=== PATIENT | female | born 1975 | race Caucasian/White ===

== ENCOUNTER 2017-03-03 21:28 | Emergency (ER) | payer MEDICAID ==
[~2017-03-03] VITALS: Ht 179.1 cm; Wt 70.0 kg
[~2017-03-03 21:28] MED LIST: CYCL-36 PO; ENDO5TAB6 PO; XANA1TAB6 PO
[2017-03-03 21:29] VITALS: BP 169/102; PULSE 96; RESP 18; TEMP 98.2; O2SAT 100
--- NOTE | 2017-03-03 22:45 | PD ---
HPI Chief Complaint: Chest Pain Time Seen by Provider: 22:44 Travel History International Travel<30 days: No Contact w/Intl Traveler<30days: No Traveled to known affect area: No History of Present Illness HPI 41-year-old female came to the emergency room with complaints of chest pain. Patient says this pain has been there for past 4 days. She had gone to [facility] emergency room 3 days ago where as per the patient she was admitted for possible bacterial endocarditis. She was given a dose of antibiotic but was discharged home the next day after echocardiogram. She was never told the result of the echocardiogram. She did not go home on any antibiotics. Patient has history of prosthetic mitral valve and is supposed to be on Coumadin. She says she takes her Coumadin like she supposed to. Her INR 3 days ago at [place] was 3.1. She had the valve replacement surgery done about a year or 2 ago at [facility]. Vital signs were stable. Patient says the pain is on the left side of her chest radiating to the back. [facility] Past Medical History Narrative Medical List of her past medical, surgical, social and family history is reviewed from the nursing note ?: Unknown LMP: 02/28/10 : 9 Para: 1 Miscarriage: 8 Dilation and Curettage (D&C): Yes Past Surgical History Abdominal Surgery: Yes Gynecologic Surgery: Yes (LAPROSCOPY) Tonsillectomy: Yes Other Surgery: Yes (laparoscopy) Social History Alcohol Use: Yes (ONCE A MONTH) Tobacco Use: Yes (1/2 PPD) Substance Use: No Allergies-Medications (Allergen,Severity, Reaction): Coded Allergies: Morphine (Verified Allergy, Intermediate, 03/03/17) rash Aspirin (Verified Allergy, Mild, 03/03/17) Penicillin (Verified Allergy, Mild, 03/03/17) Stadol (Verified Allergy, Mild, 03/03/17) Amoxicillin (Verified Allergy, Unknown, 03/03/17) Bentyl (Verified Allergy, Unknown, 03/03/17) closing throat up Comments List of her allergies reviewed from the nursing note. Reported Meds & Prescriptions Reported Meds & Active Scripts Active Reported Endocet (Oxycodone/Acetaminophen) 5 Mg/325 Mg Tab 1 Tab PO QID Xanax (Alprazolam) 1 Mg Tab 1 Mg PO QID Flexeril (Cyclobenzaprine HCl) 10 Mg Tab 10 Mg PO TID Narrative Medication List of her home medications reviewed from the nursing note. Review of Systems Except as stated in HPI: all other systems reviewed are Neg Physical Exam Narrative GENERAL: Awake, alert, anxious, moderate distress SKIN: Focused skin assessment warm/dry. HEAD: Atraumatic. Normocephalic. EYES: Pupils equal and round. No scleral icterus. No injection or drainage. ENT: No nasal bleeding or discharge. Mucous membranes pink and moist. NECK: Trachea midline. No JVD. CARDIOVASCULAR: Regular rate and rhythm. No murmur appreciated. RESPIRATORY: No accessory muscle use. Clear to auscultation. Breath sounds equal bilaterally. GASTROINTESTINAL: Abdomen soft, non-tender, nondistended. Hepatic and splenic margins not palpable. MUSCULOSKELETAL: No obvious deformities. No clubbing. No cyanosis. No edema. NEUROLOGICAL: Awake and alert. No obvious cranial nerve deficits. Motor grossly within normal limits. Normal speech. PSYCHIATRIC: Appropriate mood and affect; insight and judgment normal. Data Data Last Documented VS Vital Signs Date Time Temp Pulse Resp B/P Pulse Ox O2 Delivery O2 Flow Rate FiO2 03/04/17 00:48 98.1 76 18 168/87 100 Room Air Orders Electrocardiogram (03/03/17 23:02) Basic Metabolic Panel (Bmp) (03/03/17 23:02) Ckmb (Isoenzyme) Profile (03/03/17 23:02) Complete Blood Count With Diff (03/03/17 23:02) Magnesium (Mg) (03/03/17 23:02) Prothrombin Time / Inr (Pt) (03/03/17 23:02) Act Partial Throm Time (Ptt) (03/03/17 23:02) Troponin I (03/03/17 23:02) Chest, Single Ap (03/03/17 23:02) Ecg Monitoring (03/03/17 23:02) Bilateral Bp Monitoring (03/03/17 23:02) Iv Access Insert/Monitor (03/03/17 23:) Oximetry (03/03/17 23:02) Oxygen Administration (03/03/17 23:02) Sodium Chloride 0.9% Flush (Ns Flush) (03/03/17 23:15) Ketorolac Inj (Toradol Inj) (03/03/17 23:15) Labs Laboratory Tests Test 03/03/17 23:10 White Blood Count 13.1 TH/MM3 Red Blood Count 4.33 MIL/MM3 Hemoglobin 12.7 GM/DL Hematocrit 37.6 % Mean Corpuscular Volume 86.7 FL Mean Corpuscular Hemoglobin 29.2 PG Mean Corpuscular Hemoglobin 33.7 % Concent Red Cell Distribution Width 15.2 % Platelet Count 355 TH/MM3 Mean Platelet Volume 9.1 FL Neutrophils (%) (Auto) 84.4 % Lymphocytes (%) (Auto) 8.5 % Monocytes (%) (Auto) 6.8 % Eosinophils (%) (Auto) 0.1 % Basophils (%) (Auto) 0.2 % Neutrophils # (Auto) 11.0 TH/MM3 Lymphocytes # (Auto) 1.1 TH/MM3 Monocytes # (Auto) 0.9 TH/MM3 Eosinophils # (Auto) 0.0 TH/MM3 Basophils # (Auto) 0.0 TH/MM3 CBC Comment DIFF FINAL Differential Comment Prothrombin Time 21.9 SEC Prothromb Time International 1.9 RATIO Ratio Activated Partial 42.2 SEC Thromboplast Time Sodium Level 139 MEQ/L Potassium Level 4.0 MEQ/L Chloride Level 106 MEQ/L Carbon Dioxide Level 23.0 MEQ/L Anion Gap 10 MEQ/L Blood Urea Nitrogen 8 MG/DL Creatinine 0.95 MG/DL Estimat Glomerular Filtration 65 ML/MIN Rate Random Glucose 83 MG/DL Calcium Level 8.8 MG/DL Magnesium Level 1.8 MG/DL Total Creatine Kinase 19 U/L Troponin I LESS THAN 0.02 NG/ML MDM Medical Decision Making Medical Screen Exam Complete: Yes Emergency Medical Condition: Yes Medical Record Reviewed: Yes Interpretation(s) Twelve-lead EKG was reviewed by me. Normal sinus rhythm, normal axis, nonspecific ST-T wave changes. Heart rate of 79 bpm. Differential Diagnosis ACS, nonspecific chest pain, pneumonia, pleurisy Narrative Course 12:01 AM blood test results of back and within normal limit except for her INR which is subtherapeutic. Meanwhile fax from [facility] in [place] came through. She indeed went there on the 02/28/2017. However everything and she told me was a lie. They never had the differential diagnosis of infectious endocarditis. She never received IV antibiotics. She never got an echocardiogram done. There are discharge diagnosis was costochondritis. Also she had told them that she ran out of her warfarin and has not been taking and her INR was 1. She was discharged home on prednisone, Percocet and warfarin prescription. The leukocytosis that she has in her blood test today is probably from taking the prednisone. Her INR is still subtherapeutic which tells me that she has not been taking the warfarin still. I will discharge her home at this point. I'm very suspicious of pain medication /opiate seeking behavior in this patient. Procedures EKG Prior to Arrival: No Diagnosis Primary Impression: Nonspecific chest pain Additional Impression: Noncompliance with medication regimen Referrals: Primary Care Physician Additional Instructions: Taking medications like is supposed to. Including your warfarin. Follow-up with the primary care. Disposition: DISCHARGE HOME Condition: Stable Laci Savage MD Mar 03, 2017 22:44 Laci Savage MD Mar 03, 2017 22:44
[2017-03-03] MEDS ORDERED: KETOROLAC TROMETHAMINE 30 MG/ML (IVP) VIAL IV PUSH ONE (23:15)
[2017-03-03] MEDS ORDERED: SODIUM CHLORIDE 0.9% FLUSH 10 ML FLUSH IVF PRN (23:15)
[2017-03-03 23:21] VITALS: BP 186/92; PULSE 73; RESP 18; O2SAT 73; O2SAT 99
--- NOTE | 2017-03-03 23:22 | RADRPT ---
EXAM DATE/TIME: 03/03/2017 23:02 [facility] COMPARISON: No previous studies available for comparison. INDICATIONS : Chest pain on left side. MEDICAL HISTORY : None. SURGICAL HISTORY : CABG. ENCOUNTER: Initial ACUITY: 2 days PAIN SCORE: 10/10 LOCATION: Bilateral chest FINDINGS: No infiltrate, effusion or pneumothorax. Heart size within normal limits. Patient has had previous me harpal sternotomy and aortic valve replacement. CONCLUSION: No evidence of acute cardiopulmonary disease. Carlos Alberto Cordova MD on March 03, 2017 at 23:20 Board Certified Radiologist. This report was verified electronically.
[2017-03-03 23:39] LABS: BASOPHIL % 0.2 % (0.0-2.0); EOSINOPHIL % 0.1 % (0.0-4.0); HEMATOCRIT 37.6 % (35.0-46.0); HEMO FLAGS DIFF FINAL; LYMPH % 8.5 % (9.0-44.0); LYMPHOCYTE # 1.1 TH/MM3 (1.0-4.8); MEAN CELL VOLUME 86.7 FL (80.0-100.0); MEAN CORPUSCULAR HEMOGLOBIN 29.2 PG (27.0-34.0); MEAN CORPUSCULAR HGB CONC 33.7 % (32.0-36.0); MONO % 6.8 % (0.0-8.0); NEUT % 84.4 % (16.0-70.0); PLATELET COUNT 355 TH/MM3 (150-450); RED BLOOD COUNT 4.33 MIL/MM3 (4.00-5.30); RED CELL DISTRIBUTION WIDTH 15.2 % (11.6-17.2); WHITE BLOOD COUNT 13.1 TH/MM3 (4.0-11.0)
[2017-03-03 23:45] LABS: APTT (PATIENT) 42.2 SEC (24.3-30.1); INTERNATIONAL NORMALIZED RATIO 1.9 RATIO; PROTHROMBIN TIME - PATIENT 21.9 SEC (9.8-11.6)
[2017-03-03 23:52] LABS: ANION GAP 10 MEQ/L (5-15); BLOOD UREA NITROGEN 8 MG/DL (7-18); CHLORIDE 106 MEQ/L (98-107); GLOMERULAR FILTRATION RATE 65 ML/MIN (>89); MAGNESIUM 1.8 MG/DL (1.5-2.5); SODIUM (NA) 139 MEQ/L (136-145)
[2017-03-03 23:59] LABS: CREATINE KINASE 19 U/L (26-192)
[2017-03-04 00:48] VITALS: BP 168/87; PULSE 76; RESP 18; TEMP 98.1; O2SAT 100
--- NOTE | 2017-03-04 10:01 | EKG ---
Date Performed: 03/03/2017 Time Performed: 23:00:53 PTAGE: 41 years EKG: Normal Sinus rhythm Nondiagnostic Q-waves in the inferior leads Compared to the prior tracing, patient is no longer tach ycardic and the previous ST-T wave changes have completely normalized. PREVIOUS TRACING : 06/07/1994 11.19 DOCTOR: Yaakov Weinstein Interpretating Date/Time 03/04/2017 09:56:31
== END 2017-03-04 00:49 | disposition home or self-care (01) ==
LOC: NEPE 21:28
DX: R07.9 Chest pain, unspecified (principal); D72.829 Elevated white blood cell count, unspecified; F17.200 Nicotine dependence, unspecified, uncomplicated; Z79.899 Other long term (current) drug therapy; Z91.14 Patient's other noncompliance with medication regimen; Z79.01 Long term (current) use of anticoagulants; Z95.2 Presence of prosthetic heart valve; Z88.6 Allergy status to analgesic agent; Z88.5 Allergy status to narcotic agent
CPT/HCPCS: 71010; 80048; 82550; 83735; 84484; 85025; 85610; 85730; 93005; 96374; 99285; J1885